=== PATIENT | male | born 2005 | race Caucasian/White ===

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

== ENCOUNTER 2025-01-10 13:40 | Emergency (ER) | payer OTHER, SELFPAY ==
[2025-01-10 13:43] VITALS: BP 118/72
[2025-01-10 14:13] LABS: % Basophils 0.2 % (0-2); % Eosinophils 0.3 % (0-6); % Immature Granulocytes 0.7 % (0-0.5); % Lymphocytes 7.1 % (20.5-51.1); % Monocytes 1.1 % (1.7-9.3); % Neutrophils 90.6 % (42.2-75.2); Absolute Immature Granulocytes 0.1 10^3/uL (0-0.05); Absolute Lymphocytes 0.6 10^3/uL (1.2-3.4); Absolute Monocytes 0.1 10^3/uL (0.1-0.6); Hematocrit 42.1 % (39.0-52.0); Hemoglobin 15.3 g/dL (13.0-18.0); Mean Corp Hgb Conc. 36.3 g/dL (33.0-37.0); Mean Corpuscular Hgb 31.4 pg (27.0-31.0); Mean Corpuscular Volume 86.4 fL (80.0-94.0); Mean Platelet Volume 9.3 fL (7.4-10.4); Nucleated Red Blood Cells % 0 % (-); Platelet Count 197 10^3/uL (130-400); Red Blood Cell Count 4.87 10^6/uL (4.70-6.10); Red Cell Dist. Width 12.3 % (11.5-14.5); White Blood Cell Count 8.8 10^3/uL (4.8-10.8)
[2025-01-10 14:25] LABS: Lactic Acid 1.6 mmol/L (0.7-2.0)
[2025-01-10 14:32] LABS: ALT (SGPT) 47 U/L (0-50); AST (SGOT) 38 U/L (17-59); Albumin 5.2 g/dl (3.5-5.0); Alkaline Phosphatase 80 U/L (38-126); Blood Urea Nitrogen 20 mg/dl (9-20); Calcium 9.8 mg/dl (8.4-10.2); Carbon Dioxide 25 mmol/L (22-30); Glucose 105 mg/dl (70-99); Sodium 141 mmol/L (135-145); eGFR > 60.00
[2025-01-10 14:33] LABS: COVID-19 Antigen Negative (Negative)
[2025-01-10 14:35] LABS: Chloride 105 mmol/L (98-107)
[2025-01-10 15:40] VITALS: BP 114/64
[2025-01-10 16:00] VITALS: BP 118/42
--- NOTE | 2025-01-10 16:15 | ED.GENMED ---
History of Present Illness
General
Chief Complaint: Fever
Source: patient
Exam Limitations: none
Time Seen by Provider: 01/10/25 15:57
Nursing documentation reviewed up to this point in time: agreed with
History of Present Illness
History of Present Illness:
Patient states he was driving to dental appointment and developed sudden onset of shaking chills. States he was unable to walk due to the shaking. He eventually made in to the office and his father was notified. Brought to ED for eval. Temp
101.7. Shaking has resolved. Reports body aches. No cough or SOB. No ENT symptoms. Reports nausea, no vomiting.
Past History
Past History
ED Past Medical History: None
ED Past Surgical History: None
Social History
Tobacco: Non-smoker
Alcohol: Occasional
Review of Systems
Review of Systems
Allergies reviewed?: Yes
All Other Systems: ROS reviewed and negative except as documented in HPI and ROS
Constitutional: Reports fever, fatigue and chills
EENT: Reports no symptoms
Respiratory: Reports no symptoms
Cardiac: Reports no symptoms
ABD/GI: Reports nausea
: Reports no symptoms
Musculoskeletal: Reports no symptoms
Skin: Reports no symptoms
Neurological: Reports weakness
Psychiatric: Reports no symptoms
Phy Exam
General Physical Exam
General Presentation: mild distress
General age: appears stated age
General Skin: warm and dry
General Habitus: normal
General Mental: alert
ENT Exam
ENT Exam: EOMI, pharynx normal, neck supple, normocephalic and swallowing well
Eye Exam
Eye Exam: PERRL, EOMI, conjunctiva normal and globe normal
Cardiovascular Exam
Cardiovascular Exam: regular rate/rhythm and no edema
Pulmonary Exam
Pulmonary Exam: lungs clear and no respiratory distress
Gastrointestinal Exam
Gastrointestinal Exam: non tender, soft, no organomegaly, no pulsatile mass and non distended
Neurological Exam
Neurological Exam: alert, oriented x3, CN II-XII intact, no motor deficits, no sensory deficits and speech normal
Musculoskeletal Exam
Musculoskeletal Exam: full ROM and neuro vasc intact
Skin Exam
Skin Exam: normal color, warm/dry and no rash
Psychiatric Exam
Psychiatric Exam: normal mood/affect
Sepsis
Sepsis Screening
Sepsis Assessment: Sepsis Ruled Out
Sepsis Screen
Sepsis Screen: Sepsis Ruled Out
Date: 01/10/25
Time: 17:15
Course
Orders/Labs/Results
Orders:
Orders
01/10/25 13:45
Electrocardiogram (*1) Urgent
Reason for Study: Other
Other Reason for Exam: Possible Sepsis
Cardiac Monitoring- Treatment ONCE
IV Insert/Care/Rem.- Treatment PRN
Blood Culture Q20M
EVA Source: Blood/Venous
Specimen Description:
Comment: Urgent from separate sites. If patient screens positive for possible sepsis
O2 Therapy [RESP] Urgent
Titrate/Wean O2 to maintain O2 sat greater than (%): 93
Special Instructions: TO MAINTAIN CONTINUOUS O2 SATS > OR = 93%
Pulse Ox/cont/shift [RESP] Urgent
Quantity: 1
Special Instructions: CONTINUOUS
01/10/25 13:46
EKG- Treatment ONCE
01/10/25 14:01
C-Reactive Protein Urgent
Comment: ADD ON
Complete Blood Count/With Diff Urgent
Comprehensive Metabolic Panel Urgent
Erythrocyte Sed Rate Urgent
Comment: ADD ON
Lyme Progressive Urgent
Comment: ADD ON
Monotest Urgent
Comment: ADD ON
Blood Culture Q20M
EVA Source: Blood/Venous
Specimen Description:
Comment: Urgent from separate sites. If patient screens positive for possible sepsis
01/10/25 14:02
COVID-19 Antigen Urgent
Source: Nasal Swab
Lactic Acid Q4H
Comment: ON ICE, CANCEL 2ND ORDER IF FIRST LACTIC ACID LEVEL <2
Influenza A+B Rapid Molecular Urgent
EVA Source: Nasal Swab
Specimen Description:
01/10/25 15:58
Add On- LAB Urgent
Tests Added?: mono, sed rate, CRP, lyme titer
01/10/25 16:14
0.9% Sodium Chloride 1000 ml [Nss] 1,000 ml IV BOLUS
Ketorolac [Toradol] 30 mg IV NOW STA
01/10/25 16:15
Urinalysis Reflex To Culture Urgent
Date Specimen was Collected: 01/10/25
Time Specimen was Collected: 16:15
01/10/25 17:08
Acetaminophen [Tylenol] 1,000 mg PO NOW STA
Abnormal Lab Results
01/10/25
14:01
MCH 31.4 H pg
(27.0-31.0)
Abs Immat Gran (auto) 0.1 H 10^3/uL
(0-0.05)
Absolute Neuts (auto) 8.0 H 10^3/uL
(1.4-6.5)
Absolute Lymphs (auto) 0.6 L 10^3/uL
(1.2-3.4)
Immature Gran % 0.7 H %
(0-0.5)
Neutrophils % 90.6 H %
(42.2-75.2)
Lymphocytes % 7.1 L %
(20.5-51.1)
Monocytes % 1.1 L %
(1.7-9.3)
Glucose 105 H mg/dl
(70-99)
C-Reactive Protein 14.40 H mg/L
(0.0-10.00)
Albumin 5.2 H g/dl
(3.5-5.0)
Monoscreen Positive A
(Negative)
01/10/25 14:01
01/10/25 14:01
Vital Signs
Initial and Last Documented VS:
Initial Vital Signs
Temp Pulse Resp BP Pulse Ox
100.4 F H 129 24 118/72 100
01/10/25 13:43 01/10/25 13:43 01/10/25 13:43 01/10/25 13:43 01/10/25 13:43
Last Documented Vital Signs
Temp Pulse Resp BP Pulse Ox
100.4 F H 110 15 109/41 96
01/10/25 13:43 01/10/25 17:00 01/10/25 16:15 01/10/25 17:00 01/10/25 16:00
*Pulse Oximetry
Patient hypoxic: no
*Critical Care Note
Total Time (30-74mins, 75-104mins- exclusive of procedures): Not Applicable
Update Note
Update Note:
Patient to ED with complaint of fever/chills, body aches. Symptoms started today. Labs reviewed. Latimer is positive. Discussed Latimer virus with patient and father. He was given IVF, toradol in ED with improvement in symtoms. Temp no 99.7. Will
discharge home, close follow up with PCP. Given instructions on s/s to return to ED and they are agreeable to plan.
ED Attending Note
-
Portions of this chart may have been created with voice recognition software.� Occasional wrong word or��sound alike� substitutions may have occurred due to the inherent limitations of voice recognition software.
Discharge Plan
Departure
Patient Disposition: Home (Routine Discharge)
Date of Disposition: 01/10/25
Time of Disposition: 17:08
Patient with high blood pressure during this ER visit?: No
Condition: Good
Discharge Problem:
Mononucleosis
Instructions: Mononucleosis, Fever, Adult (DC)
Prescriptions:
No Action
cephalexin 250 mg capsule
250 mg PO QID 7 Days Qty: 28 0RF
Referrals:
Jaylen Lisa, DO [Family Provider, Pediatrics] - Follow up in 2-3 days
Stand Alone Forms: Return to Work
Activity Restrictions/Additional Instructions:
Get plenty of rest. Increase your fluid intake. Take ibuprofen or tylenol for fever and body aches. Return to the emergency department immediately for fever not responding to tylenol and motrin, lethargy, confusion, not eating or drinking, or for
any further concerns.
Interventions
Interventions:
*Risk Screen - Suicide Last Done: 01/10/25 13:43
*General Assessment Last Done: 01/10/25 15:44
*Neglect/Abuse Screening Last Done: 01/10/25 13:43
*ED- Fall Risk Assessment Last Done: 01/10/25 15:44
*ED COVID-19 Vaccine History Last Done: 01/10/25 15:44
ED- Neurological Assessment Last Done: 01/10/25 16:19
ED-Skin Assessment Last Done: 01/10/25 16:19
Discharge Date and Time
Print Language: GAMBIAN
[2025-01-10 16:16] LABS: Erythrocyte Sed Rate 11 mm/hour (0-20)
[2025-01-10] MEDS: NSS 1000 IV (16:23)
[2025-01-10] MEDS: TORADOL 30 MG IV (16:23)
[2025-01-10 16:55] LABS: Monotest Positive (Negative)
[2025-01-10 17:00] VITALS: BP 109/41
[2025-01-10] MEDS: TYLENOL 1000 MG PO (17:17)
== END 2025-01-10 17:48 | disposition home or self-care (01) ==
LOC: EMR 13:40
PROVIDERS: Emergency Medicine; EMERGENCY PHYSICIAN Emergency Medicine; FAMILY PHYSICIAN Pediatrics
DX: B27.90 Infectious mononucleosis, unspecified without complication (principal); R11.0 Nausea; R26.2 Difficulty in walking, not elsewhere classified; R25.1 Tremor, unspecified; Z11.52 Encounter for screening for COVID-19; Z87.820 Personal history of traumatic brain injury
CPT/HCPCS: 99284; 96374; 96361; 80053; 83605; 85025; 85652; 86140; 86308; 86618; 87040; 87502; 87811; 93005